=== PATIENT | male | born 1960 | race African-American/Black ===

== ENCOUNTER 2024-07-06 07:50 | Emergency (ER) | payer OTHER, SELFPAY ==
[2024-07-06 08:01] VITALS: PULSE 85; TEMP 37.1; O2SAT 96; BMI 36.0
--- NOTE | 2024-07-06 08:08 | CT_ITS ---
The [address] [address] Patient Name: SIMRAN ONOFRE MRN: [id number] date: 1960 Sex: M Assigned Patient Location: ED.MAIN Current Patient Location: ED.MAIN Accession/Order Number: [id number] Exam Date: 07/06/2024 09:33 Report Date: 07/06/2024 09:44 At the request of: JENNA CHRISTENSEN MD Procedure: CT abdomen pelvis w con CT ABDOMEN AND PELVIS WITH CONTRAST COMPARISON: None CLINICAL DATA: Bilateral flank pain for the past 2 weeks. Spiral images were obtained through the abdomen and pelvis following [address] exam was performed using one or more following dose reduction techniques: Automated exposure control, adjustment of the mA and/or kV according to patient size, or use of iterative reconstruction technique. Limited cuts through the lung bases show mild cardiomegaly. There is minimal atelectasis or scarring. Mild fatty infiltration of the liver is seen. There are subcentimeter hepatic hypodensities that might be cysts. No calcified gallstones are present. The spleen, pancreas and adrenal glands show no significant abnormalities. There are symmetric renal nephrograms, without hydronephrosis. There are small bilateral renal cysts. The abdominal aorta is normal caliber and there is minimal plaque. There are small lymph nodes. Subtle hazy density is noted at the root of the mesentery and this might be mesenteric panniculitis. No ascites is seen. The small bowel loops are normal caliber. Mild stool is present within the colon. There are scattered colonic diverticula. Degenerative changes are visualized at the spine, greatest at the lower facets. Images through the pelvis show no appendiceal inflammation. There are normal caliber small bowel loops. There is air and mild stool at the distal colon. Additional colonic diverticula are seen, without associated active inflammation. The prostate is enlarged and there is mass effect at the bladder trigone. The urinary bladder is not well distended for evaluation. No ascites is seen. There is minor degenerative change at the SI joints. A sclerotic area is visualized above the right acetabulum that might be a bone island. CT/CT abdomen pelvis w con IMPRESSION: FATTY LIVER. SUSPECTED HEPATIC AND RENAL CYSTS. POSSIBLE MINOR MESENTERIC PANNICULITIS. NO BOWEL OR URINARY TRACT OBSTRUCTION. DIVERTICULOSIS. PROSTATE HYPERTROPHY. Impression dictated by: Nyla Velasco M.D.07/06/2024 9:44 AM Dictation Location: [place] [address] Electronically authenticated by: [id number] Y Date: 07/06/2024 09:44
--- NOTE | 2024-07-06 08:08 | ECG_ITS ---
The [facility] Test Date: 2024-07-06 Pat Name: SIMRAN ONOFRE Department: Room: - Gender: Male [employer]: : 1960 Requested By: [id number] Order Number: [id number] Reading MD: SIMRAN LAW M.D. Measurements Intervals [place] Rate: 75 P: 52 [place]: 166 QRS: 14 QRSD: 74 T: 40 QT: 376 QTc: 404 Interpretive Statements 1100 Sinus rhythm 4068 Nonspecific Twave abnormality Abnormal ECG Compared to ECG 04/13/2021 21:39:22 Myocardial infarct finding no longer present Electronically Signed On 07-06-2024 11:55:20 EDT by SIMRAN LAW M.D.
--- NOTE | 2024-07-06 08:10 | ED_ITS ---
HPI HPI - General Adult General Chief complaint: Urogenital-Male Stated complaint: RIGHT SIDE/BACK PAIN Time Seen by Provider: 07/06/24 08:04 Source: patient Mode of arrival: walk-in History of Present Illness HPI narrative: 64-year-old male presents to the emergency department for bilateral abdominal pain. It started several weeks ago after he started lifting weights and there was no specific injury. He states it started in the right lateral abdominal area and now its on the left lateral abdominal area as well. No constipation diarrhea or nausea. No cough chest pain or shortness of breath. He noted a p atch of darker skin on his right lateral abdominal area which had not been previously present. Related Data Home Medications ?Medication ?Instructions ?Recorded ?Confirmed amlodipine 10 mg tablet 10 mg PO DAILY 07/06/24 07/06/24 finasteride 5 mg tablet 5 mg PO DAILY 07/06/24 07/06/24 lisinopril 40 mg tablet 40 mg PO DAILY 07/06/24 07/06/24 prednisone 10 mg tablet 10 mg PO DAILY PRN gout 07/06/24 07/06/24 rosuvastatin 10 mg tablet 10 mg PO DAILY 07/06/24 07/06/24 Allergies Allergy/AdvReac Type Severity Reaction Status Date / Time No Known Drug Allergies Allergy Verified 07/06/24 08:02 Opioid HPI Opioid Management Most Recent Opioid Data: No Data to Display Review of Systems ROS Narrative A ten point review of systems is negative except as noted above. PFSH PFSH Social History Little interest or pleasure in doing things: not at all Feeling down, depressed, or hopeless: not at all Exam Narrative Exam Narrative: Nurses note and vital signs reviewed and patient is not hypoxic. General: The patient appears well and in no apparent distress. Patient is resting comfortably on cart. Skin: Warm, dry, no pallor noted. There is a patch of darker skin on his right lateral abdominal area well below the axilla. There are no pustules or blisters and there is no erythema Head: Normocephalic, atraumatic Eye: Normal conjunctiva, no drainage Ears, Nose, Mouth, and Throat: oral mucosa is moist. Nares patent. Cardiovascular: Regular Rate and Rhythm Respiratory: Patient is in no distress, no accessory muscle use, lungs are clear to auscultation, no wheezing, rales or rhonchi Back: non-tender, no CVA tenderness bilaterally to percussion. GI: Obese and nontender, no masses Musculoskeletal: The patient has no evidence of calf tenderness, no pitting edema, symmetrical pulses noted bilaterally Neurological: A&O, normal speech Psychiatric: Cooperative Constitutional Vital Signs, click to edit/add: Last Vital Signs Temp 98.7 F 07/06/24 08:01 Pulse 85 07/06/24 08:01 Resp 20 07/06/24 08:01 BP 180/99 H 07/06/24 08:37 Pulse Ox 96 07/06/24 08:01 O2 Del Method Room Air 07/06/24 08:01 Course Vital Signs Vital signs: Vital Signs Temperature 98.7 F 07/06/24 08:01 Pulse Rate 85 07/06/24 08:01 Respiratory Rate 20 07/06/24 08:01 Pulse Oximetry 96 07/06/24 08:01 Oxygen Delivery Method Room Air 07/06/24 08:01 Temperature 98.7 F 07/06/24 08:01 Pulse Rate 85 07/06/24 08:01 Respiratory Rate 20 07/06/24 08:01 Blood Pressure 180/99 H 07/06/24 08:37 Pulse Oximetry 96 07/06/24 08:01 Oxygen Delivery Method Room Air 07/06/24 08:01 Medical Decision Making MDM Narrative Medical decision making narrative: His workup is negative including CAT scan of the abdomen. There was a suggestion of mesenteric panniculitis. The patient started lifting weights about 3 weeks ago and his symptoms started the day after that. I suspect that he is having muscle pain. He was recommended ice and ibuprofen. Treatment diagnosis and follow-up were discussed with the patient and his . Differential Diagnosis Differential Diagnosis: Muscle strain, colitis, diverticulitis, pancreatitis, hepatitis Lab Data Lab results reviewed: Yes I reviewed the patient's lab results Labs: Lab Results 07/06/24 07/06/24 Range/Units 08:15 08:25 WBC 12.4 H (4.0-11.0) 10^3/uL RBC 4.62 L (4.70-6.10) 10^6/uL Hgb 14.8 (14.0-18.0) g/dL Hct 43.2 (42.0-54.0) % MCV 93.5 (80.0-94.0) fL MCH 32.0 (25.9-34.0) pg MCHC 34.3 (29.9-35.2) g/dL RDW 13.6 (11.0-15.0) % Plt Count 179 (150-450) 10^3/uL MPV 12.3 (9.5-13.5) fL Neut % (Auto) 67.9 (43.0-75.0) % Lymph % (Auto) 23.4 (20.5-60.0) % [place] % (Auto) 7.4 (1.7-12.0) % Eos % (Auto) 0.0 L (0.9-7.0) % Baso % (Auto) 0.2 (0.2-2.0) % Neut # (Auto) 8.4 H (1.4-6.5) 10^3/uL Lymph # (Auto) 2.9 (1.2-3.8) 10^3/uL Rice # (Auto) 0.9 H (0.3-0.8) 10^3/uL Eos # (Auto) 0.0 (0.0-0.7) 10^3/uL Baso # (Auto) 0.0 (0.0-0.1) 10^3/uL Abs Immat Gran (auto) 0.14 H (0.00-0.03) 10^3/uL Imm/Tot Granulo (auto) 1.1 H (0.0-0.5) % Sodium 141 (136-145) mmol/L Potassium 4.4 (3.5-5.1) mmol/L Chloride 106 (98-107) mmol/L Carbon Dioxide 24.6 (21.0-32.0) mmol/L Anion Gap 14.8 BUN 14.0 (7.0-18.0) mg/dL Creatinine 1.22 (0.70-1.30) mg/dL Est GFR ( Amer) >60 (>=60 mL/min/1.73m^2) Est GFR (Non-Af Amer) 60 (>=60 mL/min/1.73m^2) BUN/Creatinine Ratio 11.5 Glucose 119 H (74-106) mg/dL Calcium 9.2 (8.5-10.1) mg/dL Total Bilirubin 0.6 (0.2-1.0) mg/dL Direct Bilirubin 0.2 (0.0-0.2) mg/dL AST 54 H (15-37) U/L ALT 34 (16-63) U/L Alkaline Phosphatase 72 (46-116) U/L Total Protein 7.6 (6.4-8.2) g/dL Albumin 4.4 (3.4-5.0) g/dL Globulin 3.2 g/dL Albumin/Globulin Ratio 1.4 Amylase 48 (25-115) U/L Lipase 46.0 (16.0-77.0) U/L Urine Color Lt. yellow (YELLOW) Urine Clarity Clear (CLEAR) Urine pH 6.0 (5.0-9.0) Ur Specific [place] 1.020 (1.005-1.025) Urine Protein Negative (NEG/TRACE) mg/dL Urine Glucose (UA) Negative (NEGATIVE) mg/dL Urine Ketones Negative (NEGATIVE) mg/dL Urine Occult Blood Negative (NEGATIVE) Urine Nitrite Negative (NEGATIVE) Urine Bilirubin Negative (NEGATIVE) Urine Urobilinogen 0.2 (0.2-1.0) EU/dL Ur Leukocyte Esterase Trace A (NEGATIVE) Urine RBC None seen (0-2) #/HPF Urine WBC 2-5 A (NONE SEEN) #/HPF Ur Squamous Epith Cells Rare (NONE/RARE) #/LPF Urine Crystals None seen (None Seen) #/HPF Urine Bacteria None seen (NONE SEEN) #/HPF Urine Casts None seen (NONE SEEN) #/LPF Urine Mucus None seen (NONE SEEN) Ur Culture Indicated? No Imaging Data CT scan - abdomen: Radiologist's impression: ITS Impressions Abdomen/Pelvis CT 07/06/24 08:08 IMPRESSION: FATTY LIVER. SUSPECTED HEPATIC AND RENAL CYSTS. POSSIBLE MINOR MESENTERIC PANNICULITIS. NO BOWEL OR URINARY TRACT OBSTRUCTION. DIVERTICULOSIS. PROSTATE HYPERTROPHY. Impression dictated by: Nyla Velasco M.D.07/06/2024 9:44 AM Dictation Location: [place] [address] Electronically authenticated by: [id number] Y Date: 07/06/2024 09:44 Discharge Plan Discharge Chief Complaint: Urogenital-Male Clinical Impression: Abdominal wall pain Patient Disposition: Home, Self-Care Time of Disposition Decision: 09:54 Condition: Good Mode of Transportation: Private Vehicle Prescriptions / Home Meds: No Action amlodipine 10 mg tablet 10 mg PO DAILY finasteride 5 mg tablet 5 mg PO DAILY lisinopril 40 mg tablet 40 mg PO DAILY rosuvastatin 10 mg tablet 10 mg PO DAILY prednisone 10 mg tablet 10 mg PO DAILY PRN (Reason: gout) Print Language: Czech Instructions: Abdominal Pain (ED) Referrals: Physician,Non-Staff, MD [Physician] - 1 week
[2024-07-06 08:34] LABS: Basophils Percent Auto 0.2 % (0.2-2.0); Hematocrit 43.2 % (42.0-54.0); Hemoglobin 14.8 g/dL (14.0-18.0); Immature Granulocytes Abs Auto 0.14 10^3/uL (0.00-0.03); Immature Granulocytes Pct Auto 1.1 % (0.0-0.5); Lymphocytes Absolute Auto 2.9 10^3/uL (1.2-3.8); Lymphocytes Percent Auto 23.4 % (20.5-60.0); Mean Corpuscular HGB Conc 34.3 g/dL (29.9-35.2); Mean Corpuscular Volume 93.5 fL (80.0-94.0); Mean Platelet Volume 12.3 fL (9.5-13.5); Monocytes Absolute Auto 0.9 10^3/uL (0.3-0.8); Monocytes Percent Auto 7.4 % (1.7-12.0); Neutrophils Absolute Auto 8.4 10^3/uL (1.4-6.5); Neutrophils Percent Auto 67.9 % (43.0-75.0); Platelet Count 179 10^3/uL (150-450); Red Blood Count 4.62 10^6/uL (4.70-6.10); Red Cell Distribution Width 13.6 % (11.0-15.0); White Blood Count 12.4 10^3/uL (4.0-11.0)
[2024-07-06 08:35] LABS: Bilirubin Urine NEGATIVE (NEGATIVE); Blood Urine NEGATIVE (NEGATIVE); Clarity Urine CLEAR (CLEAR); Color Urine LT. YELLOW (YELLOW); Glucose Urine UA NEGATIVE (NEGATIVE); Ketones Urine NEGATIVE (NEGATIVE); Leukocyte Esterase Urine TRACE (NEGATIVE); Nitrite Urine NEGATIVE (NEGATIVE); Protein Urine NEGATIVE (NEG/TRACE); Urobilinogen Urine 0.2 EU/dL (0.2-1.0)
[2024-07-06 08:37] VITALS: BP 180/99
[2024-07-06 08:47] LABS: Bacteria Urine NONE SEEN #/HPF (NONE SEEN); Cast Seen? NONE SEEN #/LPF (NONE SEEN); Crystals Seen? None Seen #/HPF (None Seen); Mucus Urine NONE SEEN (NONE SEEN); RBC Urine NONE SEEN #/HPF (0-2); Squamous Epithelial Cell Urine RARE #/LPF (NONE/RARE); Urine Culture Indicated NO
[2024-07-06 08:51] LABS: Alanine Aminotransferase 34 U/L (16-63); Albumin Globulin Ratio 1.4; Albumin Level 4.4 g/dL (3.4-5.0); Alkaline Phosphatase 72 U/L (46-116); Anion Gap 14.8; Aspartate Amino Transferase 54 U/L (15-37); BUN Creatinine Ratio 11.5; Bilirubin Total 0.6 mg/dL (0.2-1.0); Calcium 9.2 mg/dL (8.5-10.1); Carbon Dioxide 24.6 mmol/L (21.0-32.0); Chloride 106 mmol/L (98-107); Estimated GFR (African America >60 (>=60 mL/min/1.73m^2); Estimated GFR (Non-African Ame 60 (>=60 mL/min/1.73m^2); Globulin 3.2 g/dL; Glucose 119 mg/dL (74-106); Potassium 4.4 mmol/L (3.5-5.1); Sodium 141 mmol/L (136-145); Total Protein 7.6 g/dL (6.4-8.2)
[2024-07-06 08:54] LABS: Amylase 48 U/L (25-115); Bilirubin Direct 0.2 mg/dL (0.0-0.2)
== END 2024-07-06 10:11 | disposition home or self-care (01) ==
PROVIDERS: Emergency Provider Emergency Medicine; PCP Nurse Practitioner Family
DX: R10.9 Unspecified abdominal pain (principal)
CPT/HCPCS: 36415; 74177; 80048; 80076; 81001; 82150; 83690; 85025; 93005; 99285; Q9967